=== PATIENT | male | born 2000 | race Caucasian/White ===

== ENCOUNTER → 2023-03-21 12:12 | Outpatient (CLI) | payer OTHER, SELFPAY ==
[2023-03-21 13:41] LABS: TSH w/ Reflex to FT4 1.23 uIU/mL (0.47-4.68)
[2023-03-23 05:22] LABS: RPR Screen Non Reactive (Non Reactive)
[2023-03-23 18:12] LABS: HIV 1 & 2 Ab/Ag 4th Gen Combo NEGATIVE (NEGATIVE); Hep C Virus Ab w/Reflex Quant NEGATIVE s/c (NEGATIVE)
== END ==
PROVIDERS: PCP Family Medicine; Referring Provider Family Medicine; Visit Provider Family Medicine
DX: Z00.00 Encounter for general adult medical examination without abnormal findings (principal); Z20.2 Contact with and (suspected) exposure to infections with a predominantly sexual mode of transmission; R53.83 Other fatigue
CPT/HCPCS: 36415; 84443; 86592; 86803; 87389

== ENCOUNTER → 2023-06-07 13:59 | Outpatient (CLI) | payer OTHER, SELFPAY ==
[2023-06-08 19:52] LABS: HIV 1 & 2 Ab/Ag 4th Gen Combo NEGATIVE (NEGATIVE)
== END ==
LOC: LAB 14:00
PROVIDERS: PCP Family Medicine; Referring Provider Family Medicine; Visit Provider Family Medicine
DX: Z29.9 Encounter for prophylactic measures, unspecified (principal); Z91.89 Other specified personal risk factors, not elsewhere classified
CPT/HCPCS: 36415; 87389

== ENCOUNTER → 2024-08-12 10:43 | Outpatient (CLI) | payer OTHER, SELFPAY ==
[2024-08-12 14:39] LABS: Urine Chlamydia NOT DETECTED; Urine N gonorrhoeae NOT DETECTED
[2024-08-13 05:11] LABS: RPR Screen Non Reactive (Non Reactive)
[2024-08-13 16:09] LABS: HIV 1 & 2 Ab/Ag 4th Gen Combo NEGATIVE (NEGATIVE)
== END ==
LOC: LAB 10:45
PROVIDERS: PCP Family Medicine; Referring Provider Family Medicine; Visit Provider Family Medicine
DX: Z00.00 Encounter for general adult medical examination without abnormal findings (principal); Z91.89 Other specified personal risk factors, not elsewhere classified; Z29.9 Encounter for prophylactic measures, unspecified
CPT/HCPCS: 36415; 86592; 87389; 87491; 87591

== ENCOUNTER 2025-02-10 10:54 | Emergency (ER) | payer OTHER, SELFPAY ==
[2025-02-10 11:01] VITALS: BP 140/86; RESP 20; TEMP 37; O2SAT 100; BMI 22.7
--- NOTE | 2025-02-10 12:33 | ED.WOUNDLAC ---
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 He points left thumb, currently covered in gauze. He states that he was opening something with a plastic lid when he came in contact with a sharp edge. He applied direct pressure. He states that his tetanus is up-to-date. He is denying any numbness, tingling or loss of sensation or issues with movement. He is right-handed dominant. Related Data Previous Rx's ?Medication ?Instructions ?Recorded valacyclovir 500 mg tablet 500 mg PO BID #100 tabs 04/12/24 citalopram 20 mg tablet 20 mg PO DAILY #90 tabs 10/16/24 Allergies Allergy/AdvReac Type Severity Reaction Status Date / Time No Known Drug Allergies Allergy Verified 02/10/25 11:02 Review of Systems <Kenzie Lucia PA-C - Last Filed: 02/10/25 14:37> Review of Systems Narrative: All other systems reviewed and are negative. Patient History <Kenzie Lucia PA-C - Last Filed: 02/10/25 14:37> Medical History Herpes At high risk for exposure to HIV Prophylactic measure Generalized anxiety disorder Major depression, recurrent (~2012) Bpgpj-Uskhfvwlv-Aafst (WPW) syndrome Syphilis Surgical History Anesthesia History of dental surgery (~03/17/23) History of cardiac radiofrequency ablation (~07/06/17) Family History Father Hypertension Grandmother Obesity Grandfather Cancer Hypertension Grandmother Cancer Hypertension Hyperlipidemia Smoking Status: Never smoker Exam <Kenzie Lucia PA-C - Last Filed: 02/10/25 14:37> Initial Vital Signs Initial Vital Signs: Vital Signs Temperature 98.6 F 02/10/25 11:01 Respiratory Rate 20 02/10/25 11:01 Blood Pressure 140/86 02/10/25 11:01 Pulse Oximetry 100 02/10/25 11:01 Oxygen Delivery Method Room Air 02/10/25 11:01 Vital signs reviewed and are normal. Const General: cooperative, healthy appearing, comfortable, well developed, well groomed and No acute distress Other: Smiling, pleasantly conversing, ambulatory, no distress. Resp Effort & Inspection: normal respiratory effort and able to speak in complete sentences Auscultation: clear to auscultation bilaterally, no rales, no rhonchi and no wheezes Cardio Rate: regular rate Rhythm: regular rhythm Extrem Left upper extremity: full ROM, normal capillary refill and hand Details: normal capillary refill, neuromotor exam normal, neurosensory exam normal, tendon exam normal, tenderness (Mild tenderness at the incision site), normal ROM of fingers, no swelling and laceration (3 cm curvilinear laceration to dorsal aspect of left thumb just proximal to the MCP joint. Clean no deeper structures seen.); no unusual warmth, no swelling and no foreign bodies; no cyanosis, no edema and joint enlargement noted <Devorah Sterling DO - Last Filed: 02/17/25 08:08> Initial Vital Signs Initial Vital Signs: Vital Signs Temperature 98.6 F 02/10/25 11:01 Respiratory Rate 20 02/10/25 11:01 Blood Pressure 140/86 02/10/25 11:01 Pulse Oximetry 100 02/10/25 11:01 Oxygen Delivery Method Room Air 02/10/25 11:01 Procedures <Kenzie Lucia PA-C - Last Filed: 02/10/25 14:37> Laceration Repair Laceration 1: Time of procedure: 14:00 Site: hand (Dorsal left hand, proximal 1st MCP joint) Side (If applicable): left Size (cm): 3 Description: linear Depth: simple, single layer Local Anesthetic: lidocaine 1% Amount of anesthesia used (mL): 3 Pre-repair: wound explored, irrigated extensively, deep structures intact and cleansed with chlorhexadine Skin layer suture size: 4-0 Number of sutures: 6 Technique: simple, interrupted Course <JAY Lim Last Filed: 02/10/25 14:37> Orders Ordered: Discontinued Medications Lidocaine HCl (Lidocaine 1% (Pf) 5 Ml) 5 ml INJ NOW ONE Stop: 02/10/25 13:27 Vital Signs Vital signs: Vital Signs - 8 hr 02/10/25 11:01 Temperature 98.6 F Respiratory Rate 20 Blood Pressure 140/86 Pulse Oximetry 100 Oxygen Delivery Method Room Air <Devorah Sterling DO - Last Filed: 02/17/25 08:08> Orders Ordered: Discontinued Medications Lidocaine HCl (Lidocaine 1% (Pf) 5 Ml) 5 ml INJ NOW ONE Stop: 02/10/25 13:27 Vital Signs Vital signs: Vital Signs - 8 hr 02/10/25 11:01 Temperature 98.6 F Respiratory Rate 20 Blood Pressure 140/86 Pulse Oximetry 100 Oxygen Delivery Method Room Air MDM - Wound/Laceration <Kenzie Lucia PA-C - Last Filed: 02/10/25 14:37> MDM Narrative Medical decision making narrative: Left dorsal hand laceration just proximal to the 1st MCP joint, no joint involvement, no focal neurologic deficits, sensory is intact. No clinical findings to suggest a tendon injury, he is right-handed dominant. Simple laceration repair well tolerated. Discussion regarding the tetanus he believes he is up-to-date in his going to go home and check his records 1st before having a booster. He is more than welcome to return here for this or go to a local pharmacy. I have asked him to keep the area clean and dry and keep the bulky dressing on for the next 48-72 hours, take it down do soap and water cleanse avoid submersion or prune skin, monitor for any signs of infection such as increased redness, swelling, pain, discharge or odor. This is an L and I he is returned to work though advised to have limited use of the left hand such as gripping, no liquids keep it clean. Sutures should be removed in about 7-10 days. He may return here for this as well. Discharge Plan Departure Patient Disposition: Home Clinical Impression: Laceration of hand, left Qualifiers: Encounter type: initial encounter Foreign body presence: without foreign body Qualified Code(s): S61.412A - Laceration without foreign body of left hand, initial encounter Instructions: DI for Laceration Repair Activity Restrictions/Additional Instructions: Please keep the dressing on for the next 48-72 hours. Thereafter keep the area clean and dry, soap and water cleanse is fine avoid direct submersion or prune skin. Regarding her tetanus check her records if you need 1 you can certainly go to any pharmacy or you may return here of course they are good for 10 years. Please seek medical attention if you have any increased swelling, discharge, odor, bleeding, pain, numbness or any other worrisome symptoms. Regarding work limited use of the left hand. No liquids, limit heavy gripping for the 1st 48-72 hours. Prescriptions: No Action citalopram 20 mg tablet 20 mg PO DAILY Qty: 90 1RF valacyclovir 500 mg tablet 500 mg PO BID Qty: 100 3RF Rx Instructions: Take 1 tab daily for prevention, increase to 2 tabs twice a day if noticing outbreak prodrome. Referrals: Georgiana Spencer DO [Primary Care Provider, Medical] Stand Alone Forms: Patient Portal/API ED Sign-out <Devorah Sterling DO - Last Filed: 02/17/25 08:08> Cosign ED Attending Cosignature Attestation: I was available for consultation.
== END 2025-02-10 15:12 | disposition home or self-care (01) ==
PROVIDERS: Emergency Provider Physician Assistant Medical; PCP Family Medicine
DX: S61.412A Laceration without foreign body of left hand, initial encounter (principal); W26.8XXA Contact with other sharp object(s), not elsewhere classified, initial encounter; Y92.89 Other specified places as the place of occurrence of the external cause; Y99.0 Civilian activity done for income or pay
CPT/HCPCS: 12002; 99282; 99283

== ENCOUNTER → 2025-03-21 12:48 | Outpatient (CLI) | payer OTHER, SELFPAY ==
[2025-03-21 14:55] LABS: Urine N gonorrhoeae NOT DETECTED
[2025-03-21 14:56] LABS: Urine Chlamydia NOT DETECTED
[2025-03-22 17:45] LABS: HIV 1 & 2 Ab/Ag 4th Gen Combo NEGATIVE (NEGATIVE)
== END ==
PROVIDERS: PCP Family Medicine; Referring Provider Family Medicine; Visit Provider Family Medicine
DX: Z11.3 Encounter for screening for infections with a predominantly sexual mode of transmission (principal)
CPT/HCPCS: 36415; 86592; 87389; 87491; 87591